=== PATIENT | female | born 1980 | race Caucasian/White ===

== ENCOUNTER 2021-08-08 23:26 | Emergency (ER) | payer MEDICARE, OTHER ==
[~2021-08-08] VITALS: Ht 160 cm; Wt 68.0 kg
--- NOTE | 2021-08-09 00:17 | PHYS DOC ---
General Adult EDM: Chief Complaint: UPPER EXTREMITY PAIN HPI: HPI: 40-year-old female presents with sudden onset left lateral shoulder pain. The patient was sleeping and when she woke up a couple hours later she had severe cramping pain of the left shoulder that radiates all the way down her arm. She has no idea why she has this pain. She has no history of shoulder trauma or injuries. She did not do anything significant because of the injury. She denies numbness or tingling in her fingers. It is painful to lift the shoulder or move it in general. Review of Systems: Review of Systems: Constitutional: Denies fever or chills Eyes: Denies change in visual acuity HENT: Denies nasal congestion or sore throat Respiratory: Denies cough or shortness of breath Cardiovascular: Denies chest pain or edema GI: Denies abdominal pain, nausea, vomiting, bloody stools or diarrhea : Denies dysuria Musculoskeletal: Left shoulder pain Integument: Denies rash Neurologic: Denies headache, focal weakness or sensory changes Endocrine: Denies polyuria or polydipsia Lymphatic: Denies swollen glands Psychiatric: Denies depression or anxiety Physical Exam: PE: Constitutional: Well developed, well nourished, no acute distress, non-toxic appearance. [] HENT: Normocephalic, atraumatic, bilateral external ears normal, oropharynx moist, no oral exudates, nose normal. [] Eyes: PERRLA, EOMI, conjunctiva normal, no discharge. [] Neck: Normal range of motion, no tenderness, supple, no stridor. [] Cardiovascular:Heart rate regular rhythm, no murmur [] Lungs & Thorax: Bilateral breath sounds clear to auscultation [] Abdomen: Bowel sounds normal, soft, no tenderness, no masses, no pulsatile masses. [] Skin: Warm, dry, no erythema, no rash. [] Back: No tenderness, no CVA tenderness. [] Extremities: Tenderness of the superior left shoulder, muscle spasm of the trapezius on the left, range of motion deferred due to pain [] Neurologic: Alert and oriented X 3, normal motor function, normal sensory function, no focal deficits noted. [] Psychologic: Affect normal, judgement normal, mood normal. [] EKG: EKG: [] Radiology/Procedures: Radiology/Procedures: [] Impressions: EXAM: XR SHOULDER_LEFT 2+ VIEWS 08/09/2021 12:14 AM CLINICAL INDICATION: Lateral left shoulder pain COMPARISON: None TECHNIQUE: 3 views of the left shoulder FINDINGS: No acute fracture or dislocation. Acromioclavicular and glenohumeral joints are maintained. A circumscribed lucency in the proximal humerus is likely sequela of biceps tenodesis. A 4 mm calcification along the infraspinatus footprint is suspicious for calcific tendinitis. IMPRESSION: 1. No acute osseous abnormality. 2. Calcific tendinitis in the infraspinatus tendon. Electronically signed by: Jacqueline Lopez MD (08/09/2021 1:25 AM) [facility] DICTATED AND SIGNED BY: JACQUELINE LOPEZ MD DATE: 08/09/21122 CC: LAURA JOSEPH DO; DEVIKA NIXON MD ~MTH0 0 Heart Score: C/O Chest Pain: N/A Risk Factors: Risk Factors: DM, Current or recent (<one month) smoker, HTN, HLP, family history of CAD, obesity. Risk Scores: Score 0 - 3: 2.5% MACE over next 6 weeks - Discharge Home Score 4 - 6: 20.3% MACE over next 6 weeks - Admit for Clinical Observation Score 7 - 10: 72.7% MACE over next 6 weeks - Early Invasive Strategies Course & Med Decision Making: Course & Med Decision Making Pertinent Labs and Imaging studies reviewed. (See chart for details) The patient's x-ray is negative except for calcific tendinitis. I have given her Beaver 5/325 in the emergency room. I will treat her with oral prednisone in the ER with an additional prescription for home. She is stable for discharge at this time. [] Dragon Disclaimer: Dragon Disclaimer: This electronic medical record was generated, in whole or in part, using a voice recognition dictation system. Departure Departure: Impression: Primary Impression: Tendinitis of shoulder Qualified Codes: M77.8 - Other enthesopathies, not elsewhere classified Disposition: HOME / SELF CARE / HOMELESS Condition: STABLE Referrals: DEVIKA NIXON MD (PCP) Scripts Prednisone (PREDNISONE) 50 Mg Tablet 1 TAB PO DAILY for tendinitis, #5 TAB Prov: LAURA JOSEPH DO 08/09/21 LAURA JOSEPH DO Aug 09, 2021 00:17
[2021-08-09 00:26] VITALS: BP 162/97
[2021-08-09] MEDS ORDERED: HYDROcodone/APAP 5/325MG 1 TAB TABLET PO ONE (01:00)
--- NOTE | 2021-08-09 01:27 | RAD ---
EXAM: XR SHOULDER_LEFT 2+ VIEWS 08/09/2021 12:14 AM CLINICAL INDICATION: Lateral left shoulder pain COMPARISON: None TECHNIQUE: 3 views of the left shoulder FINDINGS: No acute fracture or dislocation. Acromioclavicular and glenohumeral joints are maintained . A circumscribed lucency in the proximal humerus is likely sequela of biceps tenodesis. A 4 mm calci fication along the infraspinatus footprint is suspicious for calcific tendinitis. IMPRESSION: 1. No acute osseous abnormality. 2. Calcific tendinitis in the infraspinatus tendon. Electronically signed by: Jacqueline Lopez MD (08/09/2021 1:25 AM) [facility]
[2021-08-09] MEDS ORDERED: PRED50TA PO (01:39)
[2021-08-09] MEDS ORDERED: predniSONE 20 MG TABLET PO ONE (02:00)
== END 2021-08-09 01:57 | disposition home or self-care (01) ==
LOC: ER 23:26
DX: M77.8 Other enthesopathies, not elsewhere classified (principal)
CPT/HCPCS: 73030; 99283; J7512

== ENCOUNTER 2021-08-11 21:21 | Emergency (ER) | payer MEDICARE, OTHER ==
[~2021-08-11] VITALS: Ht 160 cm; Wt 68.0 kg
[~2021-08-11 21:21] MED LIST: PRED50TA PO
--- NOTE | 2021-08-11 21:25 | PHYS DOC ---
Past History Past Surgical History: Other Alcohol Use: None Adult General HPI HPI Patient is a 40-year-old female with a past medical history significant for nonepileptic seizures on Depakote daily who presents with a chief complaint of possible seizure activity. States that she did take her Depakote 2 times today as usual and went to bed early. States that her sister is staying with her and heard some noise from the bedroom. States that she came in she was shaking and appeared to be having a whole body seizure which lasted about 30 seconds after coming in. States that she did have some confusion for about 5 or 10 minutes after the episode. States she had not had a seizure in quite some time. States that over the last week there is been a lot of stress in the household as a fami ly member and she is only been sleeping a couple hours a night because of the stress of it and family. Denies any other alcohol or drug use. States has been eating and drinking normally for her. has been otherwise making urine and stool normally for her. Denies any recent traumas, travels, illnesses, fevers, chest pain, shortness of breath, abdominal pain, nausea, v omiting, dysuria, hematuria or blood in the stool. States here in the emergency department she feels well and has no other symptoms. Review of Systems Review of Systems Review of systems otherwise unremarkable except noted in HPI Allergies Allergies Allergies Coded Allergies Type Severity Reaction Last Updated Verified No Known Drug Allergies 08/09/21 No Physical Exam Physical Exam Constitutional: Well developed, well nourished, no acute distress, non-toxic appearance. [] HENT: Normocephalic, atraumatic, bilateral external ears normal, oropharynx moist, no oral exudates, nose normal. [] Eyes: PERRLA, EOMI, conjunctiva normal, no discharge. [] Neck: Normal range of motion, no tenderness, supple, no stridor. [] Cardiovascular:Heart rate regular rhythm, no murmur [] Lungs & Thorax: Bilateral breath sounds clear to auscultation [] Abdomen: Bowel sounds normal, soft, no tenderness, no masses, no pulsatile masses. [] Skin: Warm, dry, no erythema, no rash. [] Back: No tenderness, no CVA tenderness. [] Extremities: No tenderness, no cyanosis, no clubbing, ROM intact, no edema. [] Neurologic: Alert and oriented X 3, normal motor function, normal sensory function, able to sit, stand and walk without issue no focal deficits noted. [] Psychologic: Affect normal, judgement normal, mood normal. [] EKG EKG [] Radiology/Procedures Radiology/Procedures [] Heart Score C/O Chest Pain: No Risk Factors: Risk Factors: DM, Current or recent (<one month) smoker, HTN, HLP, family history of CAD, obesity. Risk Scores: Risk Factors: DM, Current or recent (<one month) smoker, HTN, HLP, family history of CAD, obesity. Course & Med Decision Making Course & Med Decision Making Patient is a 40-year-old female who presents with seizure activity Vital signs not concerning. Physical exam noted above. Patient alert and oriented no acute distress here in the emergency department. No focal neurologic deficits. Patient states these are nonepileptic seizures. States she has been on Depakote for years, twice daily for these and has been taking them. States over the last week since her family member she has not had much sleep, sleeping about 2 hours a night. Laboratory analysis not concerning. EKG and troponin not concerning. Patient able to take p.o. Given oral diazepam. Discussed all findings with family and patient. Advised to continue taking her Depakote as prescribed and to be sure to stay well-hydrated, eat at least 3 nutritious meals a day and sleep at night at least 6 hours. Advised to avoid triggers such as alcohol and/or other drugs. Advised to keep her appointment in the morning with her primary care physician to discuss her ED visit and need for medication management. Gave strict return precautions to the ED. Patient grateful, verbalized understanding and agreed with plan of discharge. [] Dragon Disclaimer Dragon Disclaimer This electronic medical record was generated, in whole or in part, using a voice recognition dictation system. Departure Departure: Impression: Primary Impression: Seizure-like activity Disposition: 01 HOME / SELF CARE / HOMELESS Condition: GOOD Referrals: DEVIKA NIXON MD (PCP) Patient Instructions: Nonepileptic Seizures Additional Instructions: Thank you for coming into the emergency department tonight and allowing us to ta ke care of you. Please read the attached information carefully to go back over some of the things we discussed. As discussed, please try to get some sleep at night, wanting to get at least 6 hours a night of solid sleep as this can lower your threshold for seizures. Please stay away from alcohol as well and/or any other drugs as these also reduce your threshold for seizure activity. Please be sure to stay well-hydrated and eat at least 3 nutritious meals a day and take your One-A-Day multivitamin. It is very important that you keep your appointment in the morning with your primary care physician to discuss your ED visit and your breakthrough seizures and need if any for medication management. Please come immediately back to the ED with new or concerning symptoms as we discussed. AMELIE MAX MD Aug 11, 2021 21:25
[2021-08-11 21:52] VITALS: BP 112/76
--- NOTE | 2021-08-11 22:07 | EKG ---
[address] [address] Test Date: 2021-08-11 Test Time: 21:48:48 Pat Name: PETE IYER Department: Room: Gender: F Government Employee: : 1980 Requested By: AMELIE MAX Order Number: [id number] Reading MD: Pavan Menendez MD Measurements Intervals [place] Rate: 93 P: 41 [place]: 124 QRS: 35 QRSD: 76 T: 33 QT: 340 QTc: 425 Interpretive Statements SINUS RHYTHM Electronically Signed On 08-12-2021 11:44:00 COMPLIANCE EXAMINER by Pavan Menendez MD
[2021-08-11 22:55] LABS: BASO % 0 % (0-3); EOS # 0.3 x10^3/uL (0.0-0.7); EOS % 2 % (0-3); HEMATOCRIT 41.3 % (36.0-47.0); HEMOGLOBIN 13.7 g/dL (12.0-15.5); LYMPH # 6.9 x10^3/uL (1.0-4.8); LYMPH % 47 % (24-48); MEAN CORPUSCULAR HEMOGLOBIN 31 pg (25-35); MEAN CORPUSCULAR HGB CONC 33 g/dL (31-37); MEAN CORPUSCULAR VOLUME 93 fL (79-100); MONO # 1.3 x10^3/uL (0.0-1.1); MONO % 9 % (0-9); NEUT % 41 % (31-73); PLATELET COUNT 280 x10^3/uL (140-400); RED BLOOD COUNT 4.45 x10^6/uL (3.50-5.40); RED CELL DISTRIBUTION WIDTH 14.5 % (11.5-14.5); WHITE BLOOD COUNT 14.6 x10^3/uL (4.0-11.0)
[2021-08-11 23:06] LABS: CALCIUM 9.3 mg/dL (8.5-10.1); CREATININE 0.8 mg/dL (0.6-1.0); GFR 79.4; POTASSIUM 4.1 mmol/L (3.5-5.1)
[2021-08-11 23:12] LABS: ALBUMIN 3.7 g/dL (3.4-5.0); ALBUMIN/GLOBULIN RATIO 1.1 (1.0-1.7); MAGNESIUM 2.2 mg/dL (1.8-2.4); TOTAL BILIRUBIN 0.2 mg/dL (0.2-1.0); TOTAL PROTEIN 7.1 g/dL (6.4-8.2)
[2021-08-11 23:27] LABS: BILIRUBIN,URINE NEG (NEG); CLARITY,URINE CLEAR; COLOR,URINE YELLOW; GLUCOSE,URINE NEG (NEG); NITRITE,URINE NEG (NEG); UROBILINOGEN,URINE 0.2 mg/dL (0.2 mg/dL)
[2021-08-11 23:28] LABS: BACTERIA,URINE FEW /HPF (0-FEW); SQUAMOUS EPITHELIAL CELL,UR FEW /LPF
[2021-08-12] MEDS ORDERED: diazePAM 5 MG TABLET. PO ONE (00:30)
== END 2021-08-12 00:08 | disposition home or self-care (01) ==
LOC: ER 21:21
DX: R56.9 Unspecified convulsions (principal); R41.0 Disorientation, unspecified; F43.9 Reaction to severe stress, unspecified
CPT/HCPCS: 36415; 80053; 81001; 81025; 83735; 84484; 85025; 87086; 93005; 99284

== ENCOUNTER 2021-08-17 17:30 | Emergency (ER) | payer MEDICARE, OTHER ==
[~2021-08-17] VITALS: Ht 160 cm; Wt 68.0 kg
--- NOTE | 2021-08-17 18:22 | PHYS DOC ---
Past History Past Surgical History: Tubal ligation, Other Alcohol Use: None Adult General Chief Complaint Chief Complaint: SEIZURE HPI HPI Patient is a 40-year-old female with a past medical history of nonepileptic seizures who presents to the emergency department with a chief complaint of possible seizure-like activity last night. States she was staying at a friend's house and that was told that while asleep, overnight her friend said that she looked like she was having a seizure. States that she did not have any seizure- like activity today. Denies any recent traumas, travels, illnesses, fevers, chest pain, shortness of breath, abdominal pain, nausea, vomiting, dysuria, hematuria, blood in the stool or diarrhea. Denies any alcohol or drug use. D enies any known ill contacts. States she takes Depakote twice daily, tube tabs in the morning and 3 tabs at night but cannot remember the dose. States she did take her to this morning but had not taken her 3 in the evening yet. Review of Systems Review of Systems Review of systems otherwise unremarkable except noted in HPI Allergies Allergies Allergies Coded Allergies Type Severity Reaction Last Updated Verified No Known Drug Allergies 08/09/21 No Physical Exam Physical Exam Constitutional: Well developed, well nourished, no acute distress, non-toxic appearance. [] HENT: Normocephalic, atraumatic, bilateral external ears normal, oropharynx moist, no oral exudates, nose normal. [] Eyes: PERRLA, EOMI, conjunctiva normal, no discharge. [] Neck: Normal range of motion, no tenderness, supple, no stridor. [] Cardiovascular:Heart rate regular rhythm, no murmur [] Lungs & Thorax: Bilateral breath sounds clear to auscultation [] Abdomen: soft, no tenderness, no masses, no pulsatile masses. [] Skin: Warm, dry, no erythema, no rash. [] Back: No tenderness, no CVA tenderness. [] Extremities: No tenderness, no cyanosis, no clubbing, ROM intact, no edema. [] Neurologic: Alert and oriented X 3, normal motor function, normal sensory function, able to sit, stand and walk without issue no focal deficits noted. [] Psychologic: Affect normal, judgement normal, mood normal. [] EKG EKG [] Radiology/Procedures Radiology/Procedures [] Heart Score C/O Chest Pain: No Risk Factors: Risk Factors: DM, Current or recent (<one month) smoker, HTN, HLP, family history of CAD, obesity. Risk Scores: Risk Factors: DM, Current or recent (<one month) smoker, HTN, HLP, family history of CAD, obesity. Course & Med Decision Making Course & Med Decision Making Patient is a 40-year-old female who presents with seizure activity Vital signs not concerning. Physical exam noted above. Patient placed on the monitor with IV access established. Laboratory analysis not concerning. Imaging not concerning. Patient awake and alert in no acute distress able to take p.o. Patient stated the [facility] because her family urged her to but is not sure if she actually had a seizure and did not really want to come in. Discussed all findings with patient. Advised to follow-up first thing Thursday with primary care physician and discuss need for neurologic reevaluation and medicine reevaluation by neurologist. Given contact information for local neurologist and also advised to discuss this with her primary care physician first as they are local and may have other resources. Gave strict return precautions to the ED. Advised to take all of her medications at home as prescribed. Patient grateful, verbalized understanding and agreed with plan of discharge. [] Dragon Disclaimer Dragon Disclaimer This electronic medical record was generated, in whole or in part, using a voice recognition dictation system. Departure Departure: Impression: Primary Impression: Seizure-like activity Disposition: HOME / SELF CARE / HOMELESS Condition: GOOD Referrals: DEVIKA NIXON MD (PCP) Patient Instructions: Nonepileptic Seizures Additional Instructions: Thank you for coming [facility] and allowing us to take care of you. Please read the attached information carefully to go back over some of the things we discussed. It is very important you take all your medications as prescribed and do not miss any doses. As we discussed, try to avoid triggers for seizures such as lack of sleep, alcohol, drugs and excessive stress. Please call your primary care physician first thing Thursday to update on your ED visit and set up a follow-up as soon as possible and discussed the need for neurologic consultation. He can also call Dr. Domínguez at [phone] 201uc thing Thursday to discuss your ED visit and set up a follow-up. Please call your primary care physician first as we discussed as they may have other resources or avenues of evaluation and treatment. Please come back with new or concerning symptoms as we discussed. AMELIE MAX MD Aug 17, 2021 18:22
[2021-08-17 19:20] LABS: BILIRUBIN,URINE NEG (NEG); CLARITY,URINE CLEAR; COLOR,URINE YELLOW; GLUCOSE,URINE NEG (NEG); NITRITE,URINE NEG (NEG); UROBILINOGEN,URINE 0.2 mg/dL (0.2 mg/dL)
[2021-08-17 19:21] LABS: BACTERIA,URINE 0 /HPF (0-FEW); RBC,URINE OCC /HPF (0-2); SQUAMOUS EPITHELIAL CELL,UR FEW /LPF; WBC,URINE OCC /HPF (0-4)
[2021-08-17 19:24] VITALS: BP 112/76
[2021-08-17 19:29] LABS: AMPHETAMINE/METHAMPHETAMINE NEG (NEG); BARBITURATES NEG (NEG); BENZODIAZEPINES NEG (NEG); CANNABINOIDS NEG (NEG); COCAINE NEG (NEG); METHADONE NEG (NEG); OPIATES NEG (NEG); PHENCYCLIDINE NEG (NEG)
--- NOTE | 2021-08-17 19:45 | RAD ---
PQRS Compliance Statement: One or more of the following individualized dose reduction techniques were utilized for this examinat ion: 1. Automated exposure control 2. Adjustment of the mA and/or kV according to patient size 3. Use of iterative reconstruction technique CT head without contrast 08/17/2021 6:20 PM INDICATION: Seizure COMPARISON: None available TECHNIQUE: Multiple axial CT images of the head were obtained from skull base through the vertex with out intravenous contrast. FINDINGS: Head: Ventricles, sulci and basal cisterns are within normal limits. There is no hydrocephalus. Ramírez-white matter differentiation is normal. There is no acute intracranial hemorrhage. There is no mass, mass e ffect or midline shift. Posterior fossa is normal in appearance. Visualized portions of the orbits are normal. Paranasal sinuses are well aerated. Mastoid air cells a re well aerated. Scalp and calvaria are normal. IMPRESSION: No acute intracranial hemorrhage. Electronically signed by: Becca Singleton MD (08/17/2021 7:42 PM) [facility]
[2021-08-17 19:48] LABS: BASO % 0 % (0-3); EOS # 0.1 x10^3/uL (0.0-0.7); EOS % 1 % (0-3); HEMATOCRIT 40.3 % (36.0-47.0); HEMOGLOBIN 13.2 g/dL (12.0-15.5); LYMPH # 3.8 x10^3/uL (1.0-4.8); LYMPH % 34 % (24-48); MEAN CORPUSCULAR HEMOGLOBIN 30 pg (25-35); MEAN CORPUSCULAR HGB CONC 33 g/dL (31-37); MEAN CORPUSCULAR VOLUME 92 fL (79-100); MONO # 1.3 x10^3/uL (0.0-1.1); MONO % 12 % (0-9); NEUT % 53 % (31-73); PLATELET COUNT 241 x10^3/uL (140-400); RED BLOOD COUNT 4.39 x10^6/uL (3.50-5.40); RED CELL DISTRIBUTION WIDTH 14.4 % (11.5-14.5); WHITE BLOOD COUNT 11.3 x10^3/uL (4.0-11.0)
[2021-08-17 19:51] LABS: CREATININE 0.7 mg/dL (0.6-1.0); GFR 92.7; POTASSIUM 3.9 mmol/L (3.5-5.1)
[2021-08-17 19:57] LABS: ALBUMIN 3.4 g/dL (3.4-5.0); ALBUMIN/GLOBULIN RATIO 1.1 (1.0-1.7); MAGNESIUM 1.8 mg/dL (1.8-2.4); TOTAL BILIRUBIN 0.3 mg/dL (0.2-1.0); TOTAL PROTEIN 6.5 g/dL (6.4-8.2)
[2021-08-17] MEDS ORDERED: IV NORMAL SALINE 100ML 100 ML ONE (20:11)
[2021-08-17] MEDS ORDERED: levETIRAcetam 500 MG/5 ML VIAL IV ONE (20:11)
--- NOTE | 2021-08-17 22:07 | EKG ---
[address] [address] Test Date: 2021-08-17 Test Time: 19:02:21 Pat Name: PETE IYER Department: Room: Gender: F Power Plant Technician: LUKASZ : 1980 Requested By: AMELIE MAX Order Number: [id number] Reading MD: Measurements Intervals [place] Rate: 89 P: 47 [place]: 140 QRS: 48 QRSD: 74 T: 29 QT: 352 QTc: 429 Interpretive Statements SINUS RHYTHM LEFT ATRIAL ABNORMALITY ABNORMAL ECG RI6.02 No previous ECG available for comparison
== END 2021-08-17 21:17 | disposition home or self-care (01) ==
LOC: ER 17:30
DX: R56.9 Unspecified convulsions (principal)
CPT/HCPCS: 36415; 70450; 80053; 80307; 81001; 81025; 83735; 84484; 85025; 87086; 93005; 96365; 96366; 99285; J1953

== ENCOUNTER → 2022-01-10 | Outpatient (CLI) | payer MEDICARE, OTHER ==
--- NOTE | 2022-01-10 16:29 | RAD ---
EXAM: XR EXAM OF ANKLE_RIGHT 3VIEWS 01/10/2022 3:15 PM CLINICAL INDICATION: Chronic right ankle pain COMPARISON: None TECHNIQUE: AP, oblique, and lateral views of the right ankle FINDINGS: No acute fracture. Alignment is normal. Ankle mortise is symmetric and talar dome is intac t. Joint spaces are maintained. There is an os trigonum. Small plantar calcaneal enthesophyte. Mild d iffuse soft tissue swelling. IMPRESSION: No acute osseous abnormality. Electronically signed by: Jacqueline Lopez MD (01/10/2022 4:27 PM) [id number]
== END ==
LOC: RAD 14:59
PROVIDERS: ATTEND Internal Medicine
DX: M77.31 Calcaneal spur, right foot (principal); M79.89 Other specified soft tissue disorders; M25.571 Pain in right ankle and joints of right foot
CPT/HCPCS: 73610